=== PATIENT | male | born 1960 | race African-American/Black ===

== ENCOUNTER 2018-09-19 19:41 | Emergency (ER) | payer MEDICAID ==
[~2018-09-19] VITALS: Ht 182.9 cm; Wt 96.8 kg
[~2018-09-19 19:41] MED LIST: BECL8.7A7 INH; FURO40TA4 PO; LISI-644 PO; LISI10TA4 PO; LORA-512 PO; METO50TA17 PO; OMEP20TA5 PO
[2018-09-19 19:54] VITALS: BP 145/81
[2018-09-19] MEDS ORDERED: ACYC-202 PO (21:16)
[2018-09-19] MEDS ORDERED: DOXY100C43 PO (21:16)
== END 2018-09-19 21:25 | disposition home or self-care (01) ==
LOC: ER 19:41
DX: R21 Rash and other nonspecific skin eruption (principal); L03.90 Cellulitis, unspecified; B02.9 Zoster without complications; I50.9 Heart failure, unspecified; I11.0 Hypertensive heart disease with heart failure; J45.909 Unspecified asthma, uncomplicated; F12.90 Cannabis use, unspecified, uncomplicated; F15.90 Other stimulant use, unspecified, uncomplicated; F17.210 Nicotine dependence, cigarettes, uncomplicated; Z98.890 Other specified postprocedural states; Z60.2 Problems related to living alone; Z59.0 Homelessness; Z56.0 Unemployment, unspecified; Z88.0 Allergy status to penicillin; Z88.6 Allergy status to analgesic agent; Z88.8 Allergy status to other drugs, medicaments and biological substances; Z79.899 Other long term (current) drug therapy
CPT/HCPCS: 99283

== ENCOUNTER 2020-03-05 07:25 | Day surgery (SDC) | payer MEDICAID ==
[2020-03-05] VITALS (12 sets, daily range): BP systolic 127–181; BP diastolic 55–91
[~2020-03-05] VITALS: Ht 182.9 cm; Wt 112.7 kg
[2020-03-05] MEDS ORDERED: LORazepam 0.5 MG tablet PO PRN (07:40)
[2020-03-05] MEDS ORDERED: diphenhydrAMINE 25mg capsule PO PRN (07:40)
[2020-03-05] MEDS ORDERED: nitroGLYCERIN 0.4mg SUBLingual tab SL PRN ×2 (07:40→11:10)
[2020-03-05] MEDS ORDERED: normal saline 1,000 ML IV SCH (07:40)
[2020-03-05 07:57] LABS: BASOPHILS % (AUTO) 0.6 % (0-1); EOSINOPHILS # (AUTO) 0.2 X10'3 (0-0.9); EOSINOPHILS % (AUTO) 3.2 % (0-6); HEMATOCRIT 32.7 % (42.0-52.0); HEMOGLOBIN 11.3 g/dl (14.0-17.9); LYMPHOCYTES # (AUTO) 1.6 X10'3 (1.1-4.8); LYMPHOCYTES % (AUTO) 29.3 % (21-51); MEAN CORPUSCULAR HEMOGLOBIN 31.3 PG (27.0-31.0); MEAN CORPUSCULAR HGB CONC 34.6 g/dL (33.0-36.5); MEAN CORPUSCULAR VOLUME 90.4 FL (78-98); MEAN PLATELET VOLUME 7.4 FL (7.4-10.4); MONOCYTES # (AUTO) 0.5 X10'3 (0-0.9); MONOCYTES % (AUTO) 9.5 % (2-12); NEUTROPHILS # (AUTO) 3.1 X10'3 (1.8-7.7); NEUTROPHILS % (AUTO) 57.4 % (42-75); PLATELET COUNT 155 X10'3 (140-440); RED BLOOD COUNT 3.62 X10'6 (4.70-6.10); RED CELL DISTRIBUTION WIDTH 14.5 % (11.5-14.5); WHITE BLOOD COUNT 5.4 X10'3 (4.5-11.0)
[2020-03-05 08:10] LABS: PARTIAL THROMBOPLASTIN TIME 30 SECONDS (22-32)
[2020-03-05] MEDS ORDERED: BECL7.3A INH (08:23)
[2020-03-05] MEDS ORDERED: METO50TA17 PO (08:23)
[2020-03-05] MEDS ORDERED: AMLO10TA13 PO (08:23)
[2020-03-05] MEDS ORDERED: ALBU8HFA PO (08:23)
[2020-03-05] MEDS ORDERED: MULT-1085 PO (08:23)
[2020-03-05] MEDS ORDERED: OMEP-50 PO (08:23)
[2020-03-05 08:27] LABS: ALBUMIN 3.4 G/DL (3.4-5.0); ANION GAP 9 (8-16); BLOOD UREA NITROGEN 16 MG/DL (7-18); BUN/CREATININE RATIO 9.8 (5.4-32.0); CALCIUM 8.4 MG/DL (8.5-10.1); CHLORIDE 106 MMOL/L (99-107); CREATININE 1.64 MG/DL (0.60-1.10); GLUCOSE 158 MG/DL (70-104); POTASSIUM 3.3 MMOL/L (3.5-5.1); SODIUM 141 MMOL/L (135-145); TOTAL CARBON DIOXIDE 26.4 MMOL/L (24-32); eGFR 53 ML/MIN
[2020-03-05] MEDS ORDERED: LIDOcaine 1% (10mg/ml)w/preservative injection 20ml MDV ONE (08:56)
[2020-03-05] MEDS ORDERED: iohexol 350 MG/ML 50ML vial IV ONE (08:56)
[2020-03-05] MEDS ORDERED: iohexol 350MG/ML 100ml bottle IV ONE (08:56)
[2020-03-05] MEDS ORDERED: fentaNYL/PF 50MCG/1 ML 2ML syringe ONE (08:57)
[2020-03-05] MEDS ORDERED: midazolam 2 mg/2 ml injection ONE (08:58)
[2020-03-05] MEDS ORDERED: OXAZEpam 15mg capsule PO PRN (11:10)
[2020-03-05] MEDS ORDERED: HYDROcodone/acetaminophen 5mg/325mg tablet PO PRN (11:10)
[2020-03-05] MEDS ORDERED: proCHLORperazine 10 MG/2 ml inj IV PRN (11:10)
[2020-03-05] MEDS ORDERED: ondansetron/PF 4mg/2ml inj IV PRN (11:10)
[2020-03-05] MEDS ORDERED: HYDROcodone/acetaminophen 10/325mg tab PO PRN (11:10)
== END 2020-03-05 16:50 | disposition home or self-care (01) ==
LOC: SSTAY O 07:25
PROVIDERS: ATTEND Internal Medicine Cardiovascular Disease
DX: R94.39 Abnormal result of other cardiovascular function study (principal); I34.0 Nonrheumatic mitral (valve) insufficiency; I42.9 Cardiomyopathy, unspecified; J44.9 Chronic obstructive pulmonary disease, unspecified; I10 Essential (primary) hypertension; I25.2 Old myocardial infarction; F17.210 Nicotine dependence, cigarettes, uncomplicated; Z72.89 Other problems related to lifestyle; Z96.652 Presence of left artificial knee joint; Z79.899 Other long term (current) drug therapy; Z79.01 Long term (current) use of anticoagulants
CPT/HCPCS: 36415; 80048; 85025; 85610; 85730; 93005; 93458; 99152; C1760; C1769; J1644; J2001; J2250; J3010; J7030; Q0163; Q9967; A4620; A6258

== ENCOUNTER 2022-03-03 09:06 | Inpatient (IN) | payer MEDICAID ==
[~2022-03-03] VITALS: Ht 182.9 cm; Wt 122.1 kg
[~2022-03-03 09:06] MED LIST changes: +ALBU8HFA PO; +AMLO10TA13 PO; +BECL7.3A INH; -BECL8.7A7 INH; -FURO40TA4 PO; -LISI-644 PO; -LISI10TA4 PO; -LORA-512 PO; +MULT-1085 PO; +OMEP20CA16 PO; -OMEP20TA5 PO
[2022-03-03 09:40] LABS: BASOPHILS % (AUTO) 0.4 % (0-1); EOSINOPHILS % (AUTO) 0.5 % (0-6); HEMATOCRIT 27.9 % (42.0-52.0); HEMOGLOBIN 8.6 g/dl (14.0-17.9); LYMPHOCYTES % (AUTO) 12.5 % (21-51); MEAN CORPUSCULAR HEMOGLOBIN 21.6 PG (27.0-31.0); MEAN CORPUSCULAR HGB CONC 30.9 g/dL (33.0-36.5); MEAN CORPUSCULAR VOLUME 70.1 FL (78-98); MEAN PLATELET VOLUME 6.8 FL (7.4-10.4); MONOCYTES % (AUTO) 12.2 % (2-12); NEUTROPHILS # (AUTO) 5.9 X10'3 (1.8-7.7); NEUTROPHILS % (AUTO) 74.4 % (42-75); PLATELET COUNT 206 X10'3 (140-440); RED BLOOD COUNT 3.99 X10'6 (4.70-6.10); RED CELL DISTRIBUTION WIDTH 21.6 % (11.5-14.5); WHITE BLOOD COUNT 7.9 X10'3 (4.5-11.0)
[2022-03-03 09:52] LABS: ALANINE AMINOTRANSFERASE 38 U/L (12-78); ALBUMIN 3.4 G/DL (3.4-5.0); ALBUMIN/GLOBULIN RATIO 0.7 (1.1-1.5); ALKALINE PHOSPHATASE 64 IU/L (46-116); ANION GAP 8 (8-16); ASPARTATE AMINO TRANSFERASE 53 U/L (10-37); BILIRUBIN,TOTAL 0.6 MG/DL (0.1-1.0); BLOOD UREA NITROGEN 17 MG/DL (7-18); BUN/CREATININE RATIO 10.2 (5.4-32.0); CALCIUM 8.5 MG/DL (8.5-10.1); CHLORIDE 100 MMOL/L (99-107); CREATININE 1.67 MG/DL (0.60-1.10); GLUCOSE 199 MG/DL (70-104); POTASSIUM 3.7 MMOL/L (3.5-5.1); SODIUM 139 MMOL/L (135-145); TOTAL CARBON DIOXIDE 30.9 MMOL/L (24-32); TOTAL PROTEIN 8.2 G/DL (6.4-8.2); eGFR 51 ML/MIN
[2022-03-03 09:55] LABS: ANISOCYTOSIS 3+; MICROCYTOSIS 1+; PLATELET ESTIMATE NORMAL
[2022-03-03 09:57] LABS: ELLIPTOCYTES FEW
[2022-03-03 09:58] LABS: HYPOCHROMASIA 1+; LARGE PLATELETS FEW; POLYCHROMASIA FEW; TARGET CELLS FEW
[2022-03-03] MEDS ORDERED: albuterol 2.5 MG/3 ML nebule CONTNEB PRN (10:25)
[2022-03-03] MEDS ORDERED: magnesium 2GM in 50ml NS 50 ML IV ONE (10:25)
[2022-03-03] MEDS ORDERED: methylPREDNISolone sod succ 125mg/2ml vial IV ONE (10:25)
--- NOTE | 2022-03-03 10:40 | NUR ---
MEDICAL RECORDS REQUEST SIGNED BY PATIENT AND FAXED TO [facility]. WILL CALL FOR FOLLOW UP.
[2022-03-03] MEDS ORDERED: LORazepam 1 MG tablet PO PRN (11:20)
[2022-03-03] MEDS ORDERED: POTASSIUM BICARB 20meq eff tab 20 MEQ TABLET.EFF PO PRN ×2 (11:20)
[2022-03-03] MEDS ORDERED: ondansetron/PF 4mg/2ml inj IV PRN (11:20)
[2022-03-03] MEDS ORDERED: haloperidol 5mg tablet PO PRN (11:20)
[2022-03-03] MEDS ORDERED: PERFLUTREN PROTEIN-A MICROSPHR (Optison) 0.22 MG/ML 3ML VIAL IV ONE (11:20)
[2022-03-03] MEDS ORDERED: potassium CL 10mEq/100ml bag 100 ML IV PRN (11:20)
[2022-03-03] MEDS ORDERED: acetaminophen 325mg tablet PO PRN ×2 (11:20)
[2022-03-03] MEDS ORDERED: mag hydrox/Alum hydrox/simeth 30ml oral suspension PO PRN (11:20)
[2022-03-03] MEDS ORDERED: haloperidol lactate 5mg/ml inj IM PRN (11:20)
[2022-03-03] MEDS ORDERED: LORazepam 2 mg/ml vial IV PRN (11:20)
[2022-03-03] MEDS ORDERED: magnesium 4gm in 100ml NS 100 ML IV PRN (11:20)
[2022-03-03] MEDS ORDERED: albuterol 2.5 MG/3 ML nebule NEB PRN (11:20)
[2022-03-03] MEDS ORDERED: HYDROcodone/acetaminophen 10/325mg tab PO PRN (11:20)
[2022-03-03] MEDS ORDERED: magnesium 2GM in 50ml NS 50 ML IV PRN (11:20)
[2022-03-03] MEDS ORDERED: dextrose 50%-water 50ml dispensing syringe IV PRN ×2 (12:10)
[2022-03-03] MEDS ORDERED: DEXTROSE 15 GM of carb/4 tabs (each vial/BOTTLE has 4 tablets) PO PRN ×2 (12:10)
[2022-03-03] MEDS ORDERED: MESSAGE TO PHARMACY PO ONE (12:10)
[2022-03-03] MEDS ORDERED: glucagon, human recombinant 1mg kit SUBCUT PRN (12:10)
[2022-03-03 12:40] LABS: HEMOGLOBIN A1C 7.3 % (4.5-6.2)
[2022-03-03] MEDS: methylPREDNISolone sod succ 125mg/2ml vial IV SCH ×2 (12:53→22:38)
[2022-03-03] MEDS: ipratropium/albuterol 3ml nebule NEB PRN ×2 (13:00→13:01)
--- NOTE | 2022-03-03 13:23 | NUR ---
PATIENT SITTING UP IN BED EATING LUNCH, DAUGHTER AT BEDSIDE, NO SIGNS OF DISTRESS NOTED.
[2022-03-03] MEDS ORDERED: metoprolol tartrate 1mg/ml inj IV ONE ×3 (14:05→18:05)
[2022-03-03] MEDS ORDERED: furosemide 10 MG/1 ML 10ml inj IV ONE (14:20)
--- NOTE | 2022-03-03 14:21 | NUR ---
DR TSANG AT BEDSIDE AT THIS TIME TO ASSESS PATIENT. TO REVIEW RECORDS FROM [facility], CART ATTENDANT AT BEDSIDE, PAT SISTER AT BEDSIDE. PATIENT NOTED SEVERE SLEEP APNEA WITH SPO2 74% ON THE LOW END, CONTINUED ON O2 MD ALBINO TO ENTER ORDERS FOR BIPAP/CPAP PRN SLEEP.
[2022-03-03] MEDS ORDERED: ATOR20TA66 PO (15:02)
[2022-03-03] MEDS ORDERED: LATA2.5D14 EACHEYE (15:02)
[2022-03-03] MEDS ORDERED: SILD25TA10 PO (15:02)
[2022-03-03] MEDS ORDERED: INSU100V40 SQ (15:02)
[2022-03-03] MEDS ORDERED: INSU100I31 SQ (15:02)
[2022-03-03] MEDS ORDERED: ASPI-1397 PO (15:02)
[2022-03-03] MEDS ORDERED: APIX5TAB3 PO (15:05)
[2022-03-03 15:51] LABS: URINE AMPHETAMINE SCREEN POSITIVE (Neg); URINE BARBITUATE SCREEN NEGATIVE (Neg); URINE BENZODIAZEPINES SCREEN NEGATIVE (Neg); URINE CANNABINOID SCREEN NEGATIVE (Neg); URINE COCAINE SCREEN NEGATIVE (Neg); URINE METHADONE SCREEN NEGATIVE (Neg); URINE OPIATE SCREEN NEGATIVE (Neg); URINE PHENCYCLIDINE SCREEN NEGATIVE (Neg)
--- NOTE | 2022-03-03 16:08 | NUR ---
DR TSANG AT BEDSIDE TO ASSES PATIENT HR 140, PATIENT STANDING, USING URINAL. PAT OK TO GO TO MRI PER .
--- NOTE | 2022-03-03 18:03 | NUR ---
SPOKE TO DR SHARAN MERCEDES PT HR PRIMARY RN IS BUSY WITH NEW PT ,INFORMED THE MD PT HR IS IN BTW [id number]. PER HE WILL PUT THE ORDERS FOR LOPRESSOR.
[2022-03-03] MEDS: insulin Lispro (HumaLOG) vial - multi-dose SQ SCH (19:35)
[2022-03-03] MEDS ORDERED: apixaban 5mg tablet PO SCH (20:00)
[2022-03-03] MEDS ORDERED: metoprolol tartrate 50mg tablet PO SCH (20:00)
[2022-03-03] MEDS ORDERED: enoxaparin 40mg/0.4ml syringe SQ SCH (20:00)
[2022-03-03] MEDS: budesonide 0.5mg/2ml UD nebule IH SCH (20:59)
[2022-03-03] MEDS: docusate sod 100mg capsule PO SCH (22:09)
[2022-03-03] MEDS: furosemide 10 MG/1 ML 10ml inj IV SCH (22:36)
[2022-03-03] MEDS: apixaban 5mg tablet PO SCH (22:37)
[2022-03-03] MEDS: metoprolol tartrate 50mg tablet PO SCH (22:37)
[2022-03-03] MEDS: insulin glargine (Lantus) pen - multi-dose SQ SCH (22:46)
[2022-03-03] MEDS: K and/or MAG REPLACEMENT MC SCH (22:47)
[2022-03-04] VITALS (7 sets, daily range): BP systolic 88–143; BP diastolic 49–82
--- NOTE | 2022-03-04 00:13 | NUR ---
I have received report from Belem and had the opportunity to ask questions and assume patient care.
--- NOTE | 2022-03-04 00:30 | NUR ---
Patient arrived on floor via . Patient ambulates without assistance to bathroom. Res0p Addendum: 03/04/22 at 0105 by Nancy Victor RN Patient on room air but O2 sat 87%. Patient placed on N/C 3L and respiratory therapy called. Patient repeatedly fell asleep so Admission Assessment completion was limited. Sleep apnea noted.
--- NOTE | 2022-03-04 06:27 | NUR ---
Problems reprioritized. Patient report given, questions answered & plan of care reviewed with Marleny.
[2022-03-04 06:50] LABS: BASOPHILS % (AUTO) 0.1 % (0-1); EOSINOPHILS % (AUTO) 0 % (0-6); HEMATOCRIT 26.8 % (42.0-52.0); HEMOGLOBIN 8.3 g/dl (14.0-17.9); LYMPHOCYTES # (AUTO) 0.7 X10'3 (1.1-4.8); LYMPHOCYTES % (AUTO) 8.5 % (21-51); MEAN CORPUSCULAR HEMOGLOBIN 21.6 PG (27.0-31.0); MEAN CORPUSCULAR HGB CONC 31.1 g/dL (33.0-36.5); MEAN CORPUSCULAR VOLUME 69.5 FL (78-98); MONOCYTES # (AUTO) 0.4 X10'3 (0-0.9); MONOCYTES % (AUTO) 4.4 % (2-12); NEUTROPHILS # (AUTO) 7.6 X10'3 (1.8-7.7); PLATELET COUNT 194 X10'3 (140-440); RED BLOOD COUNT 3.86 X10'6 (4.70-6.10); RED CELL DISTRIBUTION WIDTH 21.3 % (11.5-14.5); WHITE BLOOD COUNT 8.7 X10'3 (4.5-11.0)
[2022-03-04 07:09] LABS: ALANINE AMINOTRANSFERASE 40 U/L (12-78); ALBUMIN 3.2 G/DL (3.4-5.0); ALBUMIN/GLOBULIN RATIO 0.7 (1.1-1.5); ALKALINE PHOSPHATASE 65 IU/L (46-116); AMYLASE 60 U/L (25-115); ANION GAP 5 (8-16); ASPARTATE AMINO TRANSFERASE 46 U/L (10-37); BILIRUBIN,TOTAL 0.4 MG/DL (0.1-1.0); BLOOD UREA NITROGEN 23 MG/DL (7-18); BUN/CREATININE RATIO 15.5 (5.4-32.0); CALCIUM 8.4 MG/DL (8.5-10.1); CHLORIDE 102 MMOL/L (99-107); CREATININE 1.48 MG/DL (0.60-1.10); GLUCOSE 201 MG/DL (70-104); LIPASE 131 U/L (73-393); MAGNESIUM 1.7 MG/DL (1.5-2.4); PHOSPHORUS 3.9 MG/DL (2.3-4.5); POTASSIUM 4.6 MMOL/L (3.5-5.1); SODIUM 139 MMOL/L (135-145); TOTAL CARBON DIOXIDE 32.3 MMOL/L (24-32); eGFR 59 ML/MIN
[2022-03-04] MEDS ORDERED: nicotine 21mg patch - 24 hr TD SCH (08:00)
[2022-03-04] MEDS: latanoprost 0.005% 2.5ml ophthalmic drops EACHEYE SCH (08:00)
[2022-03-04] MEDS: docusate sod 100mg capsule PO SCH ×2 (08:00→20:00)
[2022-03-04] MEDS ORDERED: multivitamins, therapeutics tablet PO SCH (08:00)
[2022-03-04] MEDS: K and/or MAG REPLACEMENT MC SCH ×2 (08:00→20:00)
[2022-03-04] MEDS ORDERED: digoxin 250mcg/ml 2ml ampule IV ONE ×2 (08:20→16:00)
[2022-03-04] MEDS: furosemide 10 MG/1 ML 10ml inj IV SCH ×2 (08:21→20:08)
[2022-03-04] MEDS: methylPREDNISolone sod succ 125mg/2ml vial IV SCH ×3 (08:21→21:24)
[2022-03-04] MEDS: apixaban 5mg tablet PO SCH ×2 (08:22→20:02)
[2022-03-04] MEDS: pantoprazole 40mg Tablet.DR PO SCH (08:22)
[2022-03-04] MEDS: multivitamins, therapeutics tablet PO SCH (08:22)
[2022-03-04] MEDS: metoprolol tartrate 50mg tablet PO SCH ×2 (08:23→20:05)
[2022-03-04] MEDS: atorvastatin 20mg tablet PO SCH (08:23)
[2022-03-04] MEDS: amLODIPine 5mg tablet PO SCH (08:23)
[2022-03-04] MEDS: aspirin 81mg, enteric-coated 1 TAB TABLET.DR PO SCH (08:23)
[2022-03-04] MEDS: insulin Lispro (HumaLOG) vial - multi-dose SQ SCH ×2 (08:30→14:20)
[2022-03-04] MEDS: HYDROcodone/acetaminophen 5mg/325mg tablet PO PRN ×2 (08:37→15:30)
--- NOTE | 2022-03-04 09:13 | NUR ---
Diabetes consult: Noted pt w/ hx of DM A1c 7.3. Pt was on BiPAP and seemed rather drowsy, written DM ed w/ RD contact info left on bedside table. Addendum: 03/04/22 at [address] Sánchez [address] RD Amended: Links added.
[2022-03-04] MEDS: budesonide 0.5mg/2ml UD nebule IH SCH ×2 (09:21→20:06)
[2022-03-04] MEDS: ipratropium/albuterol 3ml nebule NEB PRN (09:22)
[2022-03-04 09:26] LABS: ANISOCYTOSIS 3+; MICROCYTOSIS 2+; PLATELET ESTIMATE NORMAL
[2022-03-04 09:27] LABS: HYPOCHROMASIA 2+
[2022-03-04 10:32] LABS: % IRON SATURATION 5 % (11-46); IRON 20 UG/DL (53-167); TOTAL IRON BINDING CAPACITY 391 UG/DL (259-388)
[2022-03-04] MEDS ORDERED: CefTRIAXone/D5W-Rocephin 1gm 50 ML IV ONE (18:10)
--- NOTE | 2022-03-04 18:26 | NUR ---
Problems reprioritized. Patient report given, questions answered & plan of care reviewed with HOWIE LEIJA.
--- NOTE | 2022-03-04 18:52 | NUR ---
Patient in room PCU 3017. I have received report from LISS Farmer and had the opportunity to ask questions and assume patient care.
[2022-03-04] MEDS: insulin glargine (Lantus) pen - multi-dose SQ SCH (21:20)
[2022-03-05] MEDS ORDERED: digoxin 250mcg/ml 2ml ampule IV ONE
[2022-03-05 06:00] VITALS: BP 133/74
--- NOTE | 2022-03-05 06:34 | NUR ---
Problems reprioritized. Patient report given, questions answered & plan of care reviewed with Rivera RN
[2022-03-05] MEDS: atorvastatin 20mg tablet PO SCH (07:47)
[2022-03-05] MEDS: docusate sod 100mg capsule PO SCH ×2 (07:47→20:00)
[2022-03-05] MEDS: methylPREDNISolone sod succ 125mg/2ml vial IV SCH ×3 (07:47→20:08)
[2022-03-05] MEDS: pantoprazole 40mg Tablet.DR PO SCH (07:47)
[2022-03-05] MEDS: multivitamins, therapeutics tablet PO SCH (07:47)
[2022-03-05] MEDS: furosemide 10 MG/1 ML 10ml inj IV SCH ×2 (07:47→19:57)
[2022-03-05] MEDS: aspirin 81mg, enteric-coated 1 TAB TABLET.DR PO SCH (07:48)
[2022-03-05] MEDS: apixaban 5mg tablet PO SCH ×2 (07:48→19:56)
[2022-03-05] MEDS: amLODIPine 5mg tablet PO SCH (07:48)
[2022-03-05] MEDS: K and/or MAG REPLACEMENT MC SCH ×2 (07:48→20:00)
[2022-03-05] MEDS: CefTRIAXone/D5W-Rocephin 1gm 50 ML IV SCH (07:48)
[2022-03-05] MEDS: latanoprost 0.005% 2.5ml ophthalmic drops EACHEYE SCH (07:48)
[2022-03-05] MEDS ORDERED: metoprolol tartrate 50mg tablet PO SCH (08:00)
[2022-03-05] MEDS: iron sucrose complex injection 200 MG in normal saline 100ml IV soln 100 ML IV SCH (08:00)
[2022-03-05 08:01] LABS: BASOPHILS % (AUTO) 0.1 % (0-1); EOSINOPHILS % (AUTO) 0 % (0-6); HEMATOCRIT 32.2 % (42.0-52.0); HEMOGLOBIN 9.9 g/dl (14.0-17.9); LYMPHOCYTES # (AUTO) 1.1 X10'3 (1.1-4.8); LYMPHOCYTES % (AUTO) 5.7 % (21-51); MEAN CORPUSCULAR HEMOGLOBIN 21.6 PG (27.0-31.0); MEAN CORPUSCULAR HGB CONC 30.8 g/dL (33.0-36.5); MEAN CORPUSCULAR VOLUME 70.1 FL (78-98); MEAN PLATELET VOLUME 7.1 FL (7.4-10.4); MONOCYTES # (AUTO) 0.7 X10'3 (0-0.9); MONOCYTES % (AUTO) 3.7 % (2-12); NEUTROPHILS # (AUTO) 17.3 X10'3 (1.8-7.7); NEUTROPHILS % (AUTO) 90.5 % (42-75); PLATELET COUNT 249 X10'3 (140-440); RED CELL DISTRIBUTION WIDTH 21.3 % (11.5-14.5); WHITE BLOOD COUNT 19.1 X10'3 (4.5-11.0)
[2022-03-05 08:23] LABS: ALANINE AMINOTRANSFERASE 38 U/L (12-78); ALBUMIN 3.2 G/DL (3.4-5.0); ALBUMIN/GLOBULIN RATIO 0.6 (1.1-1.5); ALKALINE PHOSPHATASE 66 IU/L (46-116); ANION GAP 6 (8-16); ASPARTATE AMINO TRANSFERASE 44 U/L (10-37); BILIRUBIN,TOTAL 0.5 MG/DL (0.1-1.0); BLOOD UREA NITROGEN 19 MG/DL (7-18); BUN/CREATININE RATIO 15.6 (5.4-32.0); CHLORIDE 98 MMOL/L (99-107); CREATININE 1.22 MG/DL (0.60-1.10); GLUCOSE 145 MG/DL (70-104); LIPASE 109 U/L (73-393); MAGNESIUM 1.5 MG/DL (1.5-2.4); PHOSPHORUS 2.9 MG/DL (2.3-4.5); POTASSIUM 4.1 MMOL/L (3.5-5.1); SODIUM 139 MMOL/L (135-145); TOTAL CARBON DIOXIDE 34.9 MMOL/L (24-32); TOTAL PROTEIN 8.3 G/DL (6.4-8.2); eGFR 74 ML/MIN
[2022-03-05] MEDS: metoprolol tartrate 50mg tablet PO SCH ×2 (08:53→20:03)
[2022-03-05] MEDS: digoxin 250mcg (0.25mg) tablet PO SCH (08:57)
[2022-03-05] MEDS: insulin Lispro (HumaLOG) vial - multi-dose SQ SCH ×3 (09:01→22:01)
[2022-03-05] MEDS: budesonide 0.5mg/2ml UD nebule IH SCH ×2 (09:14→20:50)
[2022-03-05 09:27] LABS: PLATELET ESTIMATE NORMAL; TOTAL CELLS COUNTED 100
[2022-03-05 09:28] LABS: ANISOCYTOSIS 3+; HYPOCHROMASIA 2+; MICROCYTOSIS 2+
[2022-03-05 09:29] LABS: ELLIPTOCYTES 1+; POLYCHROMASIA 1+
[2022-03-05 11:00] VITALS: BP 108/81
[2022-03-05] MEDS ORDERED: LORazepam 2 mg/ml vial IV PRN (11:20)
--- NOTE | 2022-03-05 11:50 | NUR ---
Met with patient in regards to substance use and to see if patient was interested in resources for treatment options. Patient declined services.
[2022-03-05 15:00] VITALS: BP 140/77
[2022-03-05 18:00] VITALS: BP 159/94
--- NOTE | 2022-03-05 20:58 | NUR ---
I have received report from LISS Stafford and had the opportunity to ask questions and assume patient care.
[2022-03-05 22:00] VITALS: BP 143/74
[2022-03-05] MEDS: insulin glargine (Lantus) pen - multi-dose SQ SCH (22:03)
[2022-03-06 04:28] VITALS: BP 155/78
[2022-03-06 06:00] VITALS: BP 149/92
--- NOTE | 2022-03-06 06:30 | NUR ---
Patient in room PCU 3018. I have received report from LISS Clarke and had the opportunity to ask questions and assume patient care.
--- NOTE | 2022-03-06 06:32 | NUR ---
Problems reprioritized. Patient report given, questions answered & plan of care reviewed with LISS Milton.
[2022-03-06 07:26] LABS: BASOPHILS % (AUTO) 0 % (0-1); EOSINOPHILS % (AUTO) 0 % (0-6); RED BLOOD COUNT 5.04 X10'6 (4.70-6.10)
[2022-03-06 07:30] LABS: HEMATOCRIT 35.3 % (42.0-52.0); HEMOGLOBIN 10.8 g/dl (14.0-17.9); LYMPHOCYTES # (AUTO) 1.4 X10'3 (1.1-4.8); LYMPHOCYTES % (AUTO) 6.4 % (21-51); MEAN CORPUSCULAR HEMOGLOBIN 21.4 PG (27.0-31.0); MEAN CORPUSCULAR HGB CONC 30.5 g/dL (33.0-36.5); MEAN CORPUSCULAR VOLUME 70.2 FL (78-98); MEAN PLATELET VOLUME 8.3 FL (7.4-10.4); MONOCYTES # (AUTO) 1.1 X10'3 (0-0.9); MONOCYTES % (AUTO) 5.1 % (2-12); NEUTROPHILS # (AUTO) 19.1 X10'3 (1.8-7.7); NEUTROPHILS % (AUTO) 88.5 % (42-75); PLATELET COUNT 283 X10'3 (140-440); WHITE BLOOD COUNT 21.6 X10'3 (4.5-11.0)
[2022-03-06 07:39] LABS: ALANINE AMINOTRANSFERASE 39 U/L (12-78); ALBUMIN 3.2 G/DL (3.4-5.0); ALBUMIN/GLOBULIN RATIO 0.6 (1.1-1.5); ALKALINE PHOSPHATASE 74 IU/L (46-116); AMYLASE 77 U/L (25-115); ANION GAP 5 (8-16); ASPARTATE AMINO TRANSFERASE 35 U/L (10-37); BILIRUBIN,TOTAL 0.5 MG/DL (0.1-1.0); BLOOD UREA NITROGEN 25 MG/DL (7-18); BUN/CREATININE RATIO 19.8 (5.4-32.0); CHLORIDE 98 MMOL/L (99-107); CREATININE 1.26 MG/DL (0.60-1.10); GLUCOSE 138 MG/DL (70-104); LIPASE 198 U/L (73-393); MAGNESIUM 1.9 MG/DL (1.5-2.4); PHOSPHORUS 3.6 MG/DL (2.3-4.5); POTASSIUM 4.1 MMOL/L (3.5-5.1); SODIUM 139 MMOL/L (135-145); TOTAL CARBON DIOXIDE 36.1 MMOL/L (24-32); TOTAL PROTEIN 8.3 G/DL (6.4-8.2); eGFR 71 ML/MIN
[2022-03-06] MEDS: latanoprost 0.005% 2.5ml ophthalmic drops EACHEYE SCH (08:00)
[2022-03-06] MEDS: K and/or MAG REPLACEMENT MC SCH (08:00)
[2022-03-06] MEDS: docusate sod 100mg capsule PO SCH (08:00)
[2022-03-06 08:02] LABS: ANISOCYTOSIS 3+; HYPOCHROMASIA 1+; MICROCYTOSIS 1+; PLATELET ESTIMATE NORMAL; POIKILOCYTOSIS FEW; POLYCHROMASIA FEW; TARGET CELLS FEW
[2022-03-06] MEDS: budesonide 0.5mg/2ml UD nebule IH SCH (08:26)
[2022-03-06] MEDS: amLODIPine 5mg tablet PO SCH (09:11)
[2022-03-06] MEDS: aspirin 81mg, enteric-coated 1 TAB TABLET.DR PO SCH (09:12)
[2022-03-06] MEDS: metoprolol tartrate 50mg tablet PO SCH (09:12)
[2022-03-06] MEDS: atorvastatin 20mg tablet PO SCH (09:12)
[2022-03-06] MEDS: multivitamins, therapeutics tablet PO SCH (09:13)
[2022-03-06] MEDS: digoxin 250mcg (0.25mg) tablet PO SCH (09:13)
[2022-03-06] MEDS: apixaban 5mg tablet PO SCH (09:13)
[2022-03-06] MEDS: pantoprazole 40mg Tablet.DR PO SCH (09:13)
[2022-03-06] MEDS: methylPREDNISolone sod succ 125mg/2ml vial IV SCH ×2 (09:13→13:29)
[2022-03-06] MEDS: furosemide 10 MG/1 ML 10ml inj IV SCH (09:15)
[2022-03-06] MEDS: iron sucrose complex injection 200 MG in normal saline 100ml IV soln 100 ML IV SCH (09:15)
[2022-03-06] MEDS: CefTRIAXone/D5W-Rocephin 1gm 50 ML IV SCH (09:15)
[2022-03-06] MEDS: insulin Lispro (HumaLOG) vial - multi-dose SQ SCH ×2 (09:37→13:32)
[2022-03-06 10:00] VITALS: BP 138/90
--- NOTE | 2022-03-06 10:12 | NUR ---
O2 Sat at rest on room air:_84__% If below 89%: Recovery O2 Sat at rest on _2__LPM: 94__%: via _NC_ (mask/nasal cannula, etc..) No further documentation is necessary. If O2 Sat did not drop below 89% on room air,ambulate patient on room air. O2 Sat while ambulating on room air:___% Recovery O2 Sat while ambulating on ___LPM:___% No further documentation is necessary. If patient does not drop below 89% while ambulating, he/she does not qualify for home O2.
--- NOTE | 2022-03-06 13:00 | NUR ---
Pt refusing MRI due to Claustrophobia and inability to lay flat on back. aware and cancelled test. Pt with no signs of stroke symptoms including facial droop.
--- NOTE | 2022-03-06 13:30 | NUR ---
Home O2 delivered, anticipate written DC soon per MD.
[2022-03-06] MEDS ORDERED: CEFD300C3 PO (14:16)
[2022-03-06] MEDS ORDERED: FURO40TA4 PO (14:16)
[2022-03-06] MEDS ORDERED: PRED20TA PO (14:16)
[2022-03-06] MEDS ORDERED: DIGO250T4 PO (14:16)
[2022-03-06] MEDS ORDERED: LOSA25TA96 PO (14:16)
[2022-03-06] MEDS ORDERED: FERR210T PO (14:33)
[2022-03-07] MEDS ORDERED: LORazepam 1 MG tablet PO PRN (11:20)
[2022-03-08] MEDS ORDERED: folic acid 1mg tablet PO SCH (08:00)
[2022-03-08] MEDS ORDERED: thiamine 100mg tablet PO SCH (08:00)
== END 2022-03-06 15:41 | disposition home or self-care (01) | DRG 133 ==
LOC: ER 09:07 → UNDOADMIN 11:28 → ED HOLD 11:28 → PCU 3S 03-04 00:15
PROVIDERS: ADMIT Family Medicine; ATTEND Family Medicine
PROC: 5A09357 Assistance with Respiratory Ventilation, Less than 24 Consecutive Hours, Continuous Positive Airway Pressure (ICD-10-PCS; principal; 2022-03-04)
DX: J96.01 Acute respiratory failure with hypoxia (principal); N17.0 Acute kidney failure with tubular necrosis; I21.A1 Myocardial infarction type 2; I50.23 Acute on chronic systolic (congestive) heart failure; I42.7 Cardiomyopathy due to drug and external agent; J18.9 Pneumonia, unspecified organism; I13.0 Hypertensive heart and chronic kidney disease with heart failure and stage 1 through stage 4 chronic kidney disease, or unspecified chronic kidney disease; J44.0 Chronic obstructive pulmonary disease with (acute) lower respiratory infection; I48.91 Unspecified atrial fibrillation; D50.9 Iron deficiency anemia, unspecified; E11.22 Type 2 diabetes mellitus with diabetic chronic kidney disease; F15.90 Other stimulant use, unspecified, uncomplicated; J44.1 Chronic obstructive pulmonary disease with (acute) exacerbation; D72.823 Leukemoid reaction; G47.33 Obstructive sleep apnea (adult) (pediatric); Z60.2 Problems related to living alone; Z20.822 Contact with and (suspected) exposure to COVID-19; F40.240 Claustrophobia; T38.0X5A Adverse effect of glucocorticoids and synthetic analogues, initial encounter; Y92.230 Patient room in hospital as the place of occurrence of the external cause; N18.30 Chronic kidney disease, stage 3 unspecified; Z79.01 Long term (current) use of anticoagulants; Z79.51 Long term (current) use of inhaled steroids; Z79.899 Other long term (current) drug therapy; Z82.5 Family history of asthma and other chronic lower respiratory diseases; Z83.3 Family history of diabetes mellitus; Z56.0 Unemployment, unspecified; Z59.00 Homelessness unspecified; Z88.0 Allergy status to penicillin; Z88.8 Allergy status to other drugs, medicaments and biological substances; Z87.891 Personal history of nicotine dependence; Z79.4 Long term (current) use of insulin
CPT/HCPCS: 36415; 71045; 80053; 80162; 80305; 82150; 82948; 83036; 83540; 83550; 83690; 83735; 83880; 84100; 84484; 85007; 85008; 85025; 85610; 87070; 87081; 87635; 93005; 93306; 94640; 94660; 94760; 97161; 97530; 99285; A4615; G0378; J0696; J1160; J1650; J1756; J1815; J1940; J2930; J3475; J3490

== ENCOUNTER 2022-07-10 15:21 | Emergency (ER) | payer MEDICAID ==
[~2022-07-10] VITALS: Ht 182.9 cm; Wt 112.3 kg
[~2022-07-10 15:21] MED LIST changes: +APIX5TAB3 PO; +ASPI-1397 PO; +ATOR20TA66 PO; +CEFD300C3 PO; +DIGO250T4 PO; +FERR210T PO; +FURO40TA4 PO; +INSU100I31 SQ; +INSU100V40 SQ; +LATA2.5D14 EACHEYE; +LOSA25TA96 PO; +PRED20TA PO; +SILD25TA10 PO
[2022-07-10 15:36] VITALS: BP 117/90
[2022-07-10 15:55] LABS: BASOPHILS # (AUTO) 0.1 X10'3 (0-0.2); MEAN CORPUSCULAR HEMOGLOBIN 21.8 PG (27.0-31.0); PLATELET COUNT 192 X10'3 (140-440); WHITE BLOOD COUNT 8.9 X10'3 (4.5-11.0)
[2022-07-10 15:56] LABS: BASOPHILS % (AUTO) 0.8 % (0-1); EOSINOPHILS # (AUTO) 0.2 X10'3 (0-0.9); EOSINOPHILS % (AUTO) 2.5 % (0-6); LYMPHOCYTES # (AUTO) 1.4 X10'3 (1.1-4.8); LYMPHOCYTES % (AUTO) 15.6 % (21-51); MEAN CORPUSCULAR HGB CONC 31.2 g/dL (33.0-36.5); MEAN CORPUSCULAR VOLUME 69.9 FL (78-98); MEAN PLATELET VOLUME 7.2 FL (7.4-10.4); MONOCYTES # (AUTO) 0.9 X10'3 (0-0.9); MONOCYTES % (AUTO) 10.6 % (2-12); NEUTROPHILS # (AUTO) 6.3 X10'3 (1.8-7.7); NEUTROPHILS % (AUTO) 70.5 % (42-75); RED BLOOD COUNT 3.08 X10'6 (4.70-6.10)
[2022-07-10 16:01] LABS: HEMATOCRIT 21.5 % (42.0-52.0); HEMOGLOBIN 6.7 g/dl (14.0-17.9)
[2022-07-10 16:02] LABS: ALANINE AMINOTRANSFERASE 24 U/L (12-78); ALBUMIN 2.9 G/DL (3.4-5.0); ALBUMIN/GLOBULIN RATIO 0.5 (1.1-1.5); ALKALINE PHOSPHATASE 88 IU/L (46-116); ANION GAP 4 (8-16); ASPARTATE AMINO TRANSFERASE 43 U/L (10-37); BILIRUBIN,TOTAL 0.6 MG/DL (0.1-1.0); BLOOD UREA NITROGEN 18 MG/DL (7-18); BUN/CREATININE RATIO 8.9 (5.4-32.0); CALCIUM 8.9 MG/DL (8.5-10.1); CHLORIDE 102 MMOL/L (99-107); CREATININE 2.03 MG/DL (0.60-1.10); POTASSIUM 3.5 MMOL/L (3.5-5.1); SODIUM 137 MMOL/L (135-145); TOTAL CARBON DIOXIDE 30.6 MMOL/L (24-32); TOTAL PROTEIN 8.2 G/DL (6.4-8.2); eGFR 41 ML/MIN
[2022-07-10 16:11] LABS: GLUCOSE 73 MG/DL (70-104)
[2022-07-10 16:15] LABS: TOTAL CELLS COUNTED 100
[2022-07-10 16:17] LABS: ANISOCYTOSIS 3+; ELLIPTOCYTES FEW; HYPOCHROMASIA 1+; MICROCYTOSIS 2+; PLATELET ESTIMATE NORMAL; POLYCHROMASIA FEW; STOMATOCYTES FEW; TEAR DROP CELLS 1+
[2022-07-10 16:18] LABS: TARGET CELLS FEW
[2022-07-10 16:56] LABS: APTT 35 SECONDS (22-32)
== END 2022-07-10 17:25 | disposition left against medical advice (07) ==
LOC: ER 15:23
DX: F15.10 Other stimulant abuse, uncomplicated (principal); R06.02 Shortness of breath; R77.8 Other specified abnormalities of plasma proteins; I11.0 Hypertensive heart disease with heart failure; I50.9 Heart failure, unspecified; J44.9 Chronic obstructive pulmonary disease, unspecified; F12.90 Cannabis use, unspecified, uncomplicated; Z88.0 Allergy status to penicillin; Z88.6 Allergy status to analgesic agent; Z88.8 Allergy status to other drugs, medicaments and biological substances; Z59.00 Homelessness unspecified; Z56.0 Unemployment, unspecified
CPT/HCPCS: 36415; 71045; 80053; 83605; 83880; 84145; 84484; 85007; 85025; 85610; 85730; 93005; 99285